=== PATIENT | male | born 1940 | race Caucasian/White ===

== ENCOUNTER 2022-05-24 19:56 | Emergency (ER) | payer MEDICARE, OTHER ==
[2022-05-24 20:22] LABS: HEMOGLOBIN 15.4 gm/dl (14.0-17.5); RED BLOOD COUNT 4.87 M/UL (4.20-5.50); WHITE BLOOD COUNT 9.5 K/UL (4.5-11.0)
[2022-05-24 20:48] LABS: BUN/CREATININE RATIO 17 (0-10)
== END 2022-05-24 23:20 | disposition home or self-care (01) ==
LOC: ER1 19:56
PROVIDERS: Student in an Organized Health Care Education/Training Program
DX: R09.89 Other specified symptoms and signs involving the circulatory and respiratory systems (principal); I50.9 Heart failure, unspecified; G20 Parkinson's disease; Z88.8 Allergy status to other drugs, medicaments and biological substances
CPT/HCPCS: 71250; 80053; 85025; 99284